=== PATIENT | male | born 1955 | race Hispanic/Latino ===

== ENCOUNTER 2020-12-12 08:34 | Emergency (ER) | payer BC ==
[~2020-12-12] VITALS: Ht 172.7 cm; Wt 74.8 kg
[2020-12-12] MEDS ORDERED: GLUCOPHAGE1000 MG PO (08:53)
[2020-12-12] MEDS ORDERED: PRINIVIL20 MG PO (08:53)
[2020-12-12] MEDS ORDERED: LO-DOSE ASPIRIN81 M1 PO (08:54)
[2020-12-12] MEDS ORDERED: PREDNISONE20 MG PO (10:26)
== END 2020-12-12 11:10 | disposition home or self-care (01) ==
LOC: ED 08:34
DX: M54.5 Low back pain (principal); Z79.899 Other long term (current) drug therapy; Z79.84 Long term (current) use of oral hypoglycemic drugs; Z79.82 Long term (current) use of aspirin
CPT/HCPCS: 80048; 85025; 96374; 99283-25; J2930